=== PATIENT | male | born 1960 | race Caucasian/White ===

== ENCOUNTER 2019-06-26 19:06 | Emergency (ER) | payer SELFPAY ==
[2019-06-26 19:17] VITALS: BP 206/110; PULSE 71; RESP 18; TEMP 36.3; O2SAT 96; BMI 56.2
--- NOTE | 2019-06-26 20:13 | ED_ITS ---
Entered by Amy Hartman, acting as scribe for John Zee DO Jun 26, 2019 19:06 HPI - Extremity Problem General: Chief complaint: Extremity Problem,Nontraumatic Stated complaint: leg pain Time Seen by Provider: 06/26/19 20:13 Source: patient and family Mode of arrival: ambulatory Limitations: no limitations History of Present Illness: MD Complaint: extremity pain and extremity swelling Onset (ago): day(s) (today) Pain Consistency: constant Location: left, right and lower extremity Radiation: none Relieving factors: nothing Exacerbating factors: walking and exertion Associated symptoms: Reports rash (lower extrimities ); Deny chest pain or fever(s) Review of Systems Const: Denies: fever or chills Eyes: Denies: change in vision or blurry vision ENMT: Denies: painful swallowing, nose bleeds, post nasal drip or facial/sinus pain Card: Reports: swelling of feet/ankles; Denies: chest pain, palpitations, irregular heart rhythm, edema, shortness of breath on exertion or shortness of breath when lying down Resp: Denies: shortness of breath, productive cough, non-productive cough or wheezing GI: Denies: abdominal pain, nausea or vomiting : Denies: difficulty urinating, painful urination or blood in urine Musc: Denies: joint warmth Skin/Breast: Reports: rash (lower extrimities ) Neuro: Denies: headache, dizziness or vertigo Psych: Denies: anxiety or auditory hallucinations PFSH ED PFSH: Social History Smoking and tobacco status: never smoked Physical Exam Const: GENERAL APPEARANCE: well developed ORIENTATION/CONSCIOUSNESS: Yes oriented to person, Yes oriented to place and Yes oriented to time HENMT: COMMON NORMALS: normocephalic, external ears normal and external nose normal HEAD & SCALP: normocephalic; no scalp tenderness FACE & SINUS: normal facial exam NOSE: external nose normal and no nasal discharge EXTERNAL EAR: Yes external ears normal MOUTH: tongue normal TEETH & GINGIVA: no abnormal tooth and associated gingiva THROAT: posterior oropharynx normal; no peritonsillar mass Eye: COMMON NORMALS: PERRL, EOMs intact bilaterally and conjunctivae normal EYELID: eyelids normal CONJUNCTIVA: Yes conjunctivae normal PUPIL: Yes PERRL Neck/C-Spine: COMMON NORMALS: full ROM GENERAL: No tracheal deviation Chest: COMMONS NORMALS: inspection of chest normal CHEST: No tenderness Resp: COMMON NORMALS: clear to auscultation bilaterally EFFORT & INSPECTION: No tachypneic, No respiratory distress, No retractions, No uses accessory muscles and No tracheal deviation AUSCULTATION: clear to auscultation bilaterally, no rhonchi, no wheezes and lung sounds not diminished Cardio: RHYTHM: abnormal rhythm HEART SOUNDS: no murmurs PERIPHERAL PULSES: radial pulses present GI: INSPECTION: No abdominal distension AUSCULTATION: No hyperactive bowel sounds and No hypoactive bowel sounds PALPATION: No guarding and No rigid PERCUSSION: no dullness to percussion and no tympanic to percussion : COMMON NORMALS: Yes no CVA tenderness BLADDER/KIDNEY EXAM: Yes no CVA tenderness Back/Pelvis: COMMON NORMALS: no CVA tenderness Extremity: GENERAL: Yes edema (redness and warm to touch- bilateral right and left) and Yes weight-bearing difficulty Neuro: SENSORIUM/ORIENTATION: Yes oriented to person, Yes oriented to place and Yes oriented to time Psych: COMMON NORMALS: mental status grossly normal Course Vital Signs: Vital signs: Vital Signs Temperature 97.4 F L 06/26/19 19:17 Pulse Rate 74 06/26/19 22:31 Respiratory Rate 16 06/26/19 22:31 Blood Pressure 160/101 06/26/19 22:31 Pulse Oximetry 96 06/26/19 22:31 MDM - Extremity (Nontraumatic) MDM Narrative: Medical decision making narrative: 58-year-old male presents with right lower extremity greater than left lower extremity swelling, redness, pain. His ultrasound is negative for DVT. His blood pressure was quite high. He was noted to have an irregular heartbeat. EKG reveals atrial fibrillation, which is unknown to the patient. He was given medication for hypertension which helped his blood pressure. With new onset atrial fibrillation that is asymptomatic, he will take aspirin until seen by his primary physician, be treated for his cellulitis of the right lower extremity with swelling, and treated for hypertension. Lab Data: Labs: Lab Results 06/26/19 06/26/19 Range/Units 21:40 21:40 WBC 7.9 (4.0-10.0) 10^3/ uL RBC 5.33 H (4.1-5.3) 10^6/u L Hgb 16.0 (11.7-16.6) g/dL Hct 48.1 (42.0-52.0) % MCV 90.2 (80-94) fL MCH 30.0 (28.0-34.0) pg MCHC 33.3 (30.0-36.0) g/dL RDW 13.5 (12.1-15.1) % Plt Count 221 (130-400) 10^3/c mm MPV 10.7 H (7.4-10.4) fL Neut % (Auto) 63.6 % Lymph % (Auto) 25.9 % Blount % (Auto) 5.6 % Eos % (Auto) 3.8 % Baso % (Auto) 0.6 % Neut # (Auto) 5.0 (1.8-7.7) 10^3/u L Lymph # (Auto) 2.0 (0.8-4.8) 10^3/u L Blount # (Auto) 0.4 (0.2-0.9) 10^3/u L Eos # (Auto) 0.3 (0.0-0.8) 10^3/u L Baso # (Auto) 0.1 (0.0-0.1) 10^3/u L Nucleated RBC % (a uto) 0 % Nucleated RBCs # 0.0 /100WBC Sodium 139 (136-145) mmol/L Potassium 4.3 (3.5-5.1) mmol/L Chloride 103 (98-107) mmol/L Carbon Dioxide 23 (22-29) mmol/L Anion Gap 17.3 (5-19) BUN 13 (6-20) mg/dL Creatinine 0.8 (0.7-1.2) mg/dL GFR Calculation 99.6 (90-130) mL/min Glucose 105 (65-115) mg/dL Calcium 11.0 H (8.5-10.5) mg/dL Total Bilirubin 1.1 (0.15-1.2) mg/dL AST 25 (0-40) U/L ALT 35 (0-41) U/L Alkaline Phosphata se 179 H (40-130) IU/L C-Reactive Protein 4.9 (0.0-4.9) mg/L Total Protein 7.1 (6.6-8.7) g/dL Albumin 4.4 (3.5-5.2) g/dL Globulin 2.7 (1.3-4.6) g/dL Discharge Plan Discharge Patient Disposition: Home, Self-Care Clinical Impression: Cellulitis Qualifiers: Site of cellulitis: extremity Site of cellulitis of extremity: lower extremity Laterality: right Qualified Code(s): L03.115 - Cellulitis of right lower limb Hypertension Qualifiers: Hypertension type: essential hypertension Qualified Code(s): I10 - Essential (primary) hypertension Atrial fibrillation Qualifiers: Atrial fibrillation type: unspecified Qualified Code(s): I48.91 - Unspecified atrial fibrillation Condition: Stable Prescriptions: New lisinopril 10 mg tablet 10 mg PO DAILY Qty: 30 RF: 0 aspirin 325 mg tablet 325 mg PO DAILY Qty: 30 RF: 0 doxycycline hyclate 100 mg capsule 100 mg PO BID Qty: 20 RF: 0 Discharge Orders: Discharge Order (Routine); Ordered 06/26/19 Ordered By: John Zee Referrals: Shilpa De La Fuente DPM [Primary Care Provider] - Barbara Kendrick MD [Referring] - 4-7 days Discharge Diet: Advance as tolerated Discharge Activity: Increase activity as tolerated Patient Instructions: Atrial Fibrillation (ED), Cellulitis (ED), Hypertension (ED) Activity Restrictions/Additional Instructions: A gentle compressive wrap from the foot up may help your symptoms. Antibiotics as directed. Take your blood pressure twice daily, and record numbers for your doctor. If blood pressure remains greater than 150/90, take the medication prescribed. Take a full dose aspirin daily for the irregular heart rate. You will need more testing as an outpatient, which your family doctor can order. See her in the next couple of days. Return for chest discomfort, shortness of breath, worsening swelling, other concerning symptoms. Discharge Date/Time: 06/26/19 22:32 Coding Level of Care Code ED Access Control Officer for Chg Fwd Exam Comprehensive The documentation recorded by the Devan clancy Bridget Annette, accurately reflects the service I personally performed and the decisions made by Yayo atkinson Jeremy John, DO Jun 26, 2019 19:06
--- NOTE | 2019-06-26 20:19 | USCV_ITS ---
Edgard Orta Age: 58 Gender: M : 1960 Exam Date: 06/26/2019 20:57 Ordering Phys: John Zee DO Technologist: Pablito Crowell Exam Location: [facility] [place]ication: RT LEG PAIN AND EDEMA HISTORY: Lower extremity swelling. Lower extremity pain. PROCEDURES: Venous duplex imaging was performed in only the right lower extremity. The following venous structures were evaluated: common femoral vein, profunda vein, proximal portion of the greater saphenous vein, superficial femoral vein, and the popliteal vein. In addition, the posterior tibial and peroneal trunk were evaluated. On the right side, the common femoral, superficial femoral, profunda femoral, popliteal, posterior tibial, greater saphenous veins and the peroneal trunk were identified and interrogated in the standard fashion. These veins were found to be easily compressible with spontaneous blood flow. No evidence of insufficiency or thrombus noted. FINDINGS: Normal 2-D Doppler and augmentation and compressibility throughout the lower extremity venous structures. Additional imaging through the proximal calf veins also reveals no thrombus. Limited evaluation of the greater saphenous vein is patent with no thrombus.. Non pulsatile flow pattern. Echolucent areas are noted in the subcutaneous tissue CONCLUSIONS No evidence of DVT in the above-mentioned identifiable veins. Features of fluid retention/edema in the lower leg Dr Wilfred Gutierrez MD [facility] (Electronically Signed) Final Date: 27 June 2019 17:12 S
--- NOTE | 2019-06-26 21:15 | ECG_ITS ---
Measurements Intervals [place] Rate: 66 P: [place]: 0 QRS: 61 QRSD: 128 T: 40 QT: 368 QTc: 386 Multifocal atrial rhythm MODERATE INTRAVENTRICULAR CONDUCTION DELAY [110+ ms QRS DURATION] ABNORMAL RHYTHM ECG INTERPRETATION BASED ON A DEFAULT AGE OF 40 YEARS No previous ECG available for comparison Electronically Signed On 06-27-2019 19:57:46 [employer] by Wilfred Gutierrez M.D. [email or web address]
[2019-06-26 21:48] LABS: Basophils # 0.1 10^3/uL (0.0-0.1); Basophils % 0.6 %; Eosinophils # 0.3 10^3/uL (0.0-0.8); Eosinophils % 3.8 %; Hematocrit 48.1 % (42.0-52.0); Lymphocytes % 25.9 %; Mean Corpuscular HGB Conc 33.3 g/dL (30.0-36.0); Mean Corpuscular Volume 90.2 fL (80-94); Mean Platelet Volume 10.7 fL (7.4-10.4); Monocytes # 0.4 10^3/uL (0.2-0.9); Monocytes % 5.6 %; Neutrophils % 63.6 %; Nucleated Red Blood Cells % 0 %; Platelet Count 221 10^3/cmm (130-400); Red Blood Count 5.33 10^6/uL (4.1-5.3); Red Cell Distribution Width 13.5 % (12.1-15.1); White Blood Count 7.9 10^3/uL (4.0-10.0)
[2019-06-26] MEDS: hyDRALAzine 20 mg/mL INJ 1 mL IVP (21:49)
[2019-06-26 21:52] VITALS: BP 161/101; PULSE 74; RESP 16; O2SAT 96
[2019-06-26] MEDS: amlodipine 10 mg Tablet PO (21:55)
[2019-06-26 22:03] LABS: Alanine Aminotransferase 35 U/L (0-41); Albumin Level 4.4 g/dL (3.5-5.2); Alkaline Phosphatase 179 IU/L (40-130); Anion Gap 17.3 (5-19); Aspartate Amino Transferase 25 U/L (0-40); Blood Urea Nitrogen 13 mg/dL (6-20); C Reactive Protein 4.9 mg/L (0.0-4.9); Carbon Dioxide 23 mmol/L (22-29); Chloride 103 mmol/L (98-107); Globulin 2.7 g/dL (1.3-4.6); Glomerular Filtration Rate 99.6 mL/min (90-130); Glucose 105 mg/dL (65-115); Potassium 4.3 mmol/L (3.5-5.1); Sodium 139 mmol/L (136-145); Total Bilirubin 1.1 mg/dL (0.15-1.2); Total Protein 7.1 g/dL (6.6-8.7)
[2019-06-26 22:31] VITALS: BP 160/101; PULSE 74; RESP 16; O2SAT 96
--- NOTE | 2019-06-26 22:32 | PC.NURSE ---
Patient dc'd home in stable condition incare of family via ambulation refusing wheelchair. Discharge papers and rx explained to patient with all questions asked and answered.
== END 2019-06-26 22:32 | disposition home or self-care (01) ==
PROVIDERS: Emergency Provider Emergency Medicine; Family Provider Nurse Practitioner; PCP Nurse Practitioner
DX: L03.115 Cellulitis of right lower limb (principal); I10 Essential (primary) hypertension; I48.91 Unspecified atrial fibrillation
CPT/HCPCS: 80053; 85025; 86140; 93005; 93971; 96374; 99282; 99284; J0360

== ENCOUNTER → 2024-01-01 09:33 | Outpatient (BNVA) | payer SELFPAY | PROVIDERS: Visit Provider Nurse Practitioner | DX: M54.9 Dorsalgia, unspecified (principal) | CPT/HCPCS: 81000; 87086 ==